=== PATIENT | female | born 1980 | race Caucasian/White ===

== ENCOUNTER → 2022-07-15 | Day surgery (SDC) | payer MEDICAID ==
[~2022-07-15] VITALS: Ht 157.5 cm; Wt 97.1 kg
[~2022-07-15] MED LIST: BUPIVACAINE HCL/PF 0.5% (5MG/ML) 10ML ONE; CEFAZOLIN SODIUM 1000MG/VIAL ONE; DEXAMETHASONE 4MG/ML 1ML VIAL ONE; FENTANYL CITRATE/PF 50MCG/ML 2ML VIAL IV PRN; FENTANYL CITRATE/PF 50MCG/ML 2ML VIAL ONE; GLYCOPYRROLATE 0.2 MG/ML 2ML VIAL ONE; IBUP-2028 PO; KETOROLAC 30MG/ML VIAL ONE; LACTATED RINGERS 1,000 ML IV SCH; LIDOCAINE HCL 1% 10 MG/ML 10ML VIAL ONE; METOCLOPRAMIDE HCL 10MG/2ML VIAL ONE; MIDAZOLAM HCL 2 MG/2 ML VIAL ONE; MORPHINE SULFATE 2 MG/ML CPJ (NOT FOR IM USE) IV PRN; NEOSTIGMINE METHYLSULFATE 1MG/ML 10 ML VIAL ONE; ONDANSETRON HCL 4MG/2ML INJ IV PRN; ONDANSETRON HCL 4MG/2ML INJ ONE; PROPOFOL 200MG/20ML VIAL IV ONE; ROCURONIUM BROMIDE 10MG/ML VIAL 5ML IV ONE
[2022-07-15 13:38] VITALS: BP 135/76
== END | disposition home or self-care (01) ==
LOC: OR 06:59
PROVIDERS: ATTEND Surgery
DX: K42.0 Umbilical hernia with obstruction, without gangrene (principal); E66.01 Morbid (severe) obesity due to excess calories; Z68.35 Body mass index [BMI] 35.0-35.9, adult; Z79.899 Other long term (current) drug therapy; Z98.890 Other specified postprocedural states
CPT/HCPCS: 49594; 87426; 88305; C1781; C9803; J0690; J1100; J1885; J2250; J2405; J2704; J2710; J2765; J3010; J3490